=== PATIENT | female | born 1980 | race American Indian/Alaskan Native ===

== ENCOUNTER 2017-03-07 10:08 | Inpatient (IN) | payer MEDICAID, OTHER ==
[2017-03-07 12:16] LABS: BASO % 0.3 % (0.0-2.0); EOS % 0.3 % (0.0-4.0); HEMATOCRIT 31.9 % (34.0-47.0); LYMPH # 1.4 K/uL (1.0-4.3); LYMPH % 20.7 % (20.0-40.0); MEAN CELL VOLUME 85.7 fL (81.0-99.0); MEAN CORPUSCULAR HEMOGLOBIN 28.2 pg (27.0-31.0); MEAN CORPUSCULAR HGB CONC 32.9 g/dL (33.0-37.0); MEAN PLATELET VOLUME 10.5 fL (7.2-11.7); MONO # 0.7 K/uL (0.0-0.8); MONO % 10.5 % (0.0-10.0); RED CELL DISTRIBUTION WIDTH 15.2 % (11.5-14.5); WHITE BLOOD COUNT 6.7 K/uL (4.8-10.8)
[2017-03-07 12:19] LABS: CHLORIDE 103 mmol/L (98-107); RBC URINE < 1 /hpf (0-3); SODIUM 135 mmol/L (132-148); URINE BACTERIA OCC (<OCC); URINE BILIRUBIN NEGATIVE (NEGATIVE); URINE BLOOD NEGATIVE (NEGATIVE); URINE COLOR Straw (YELLOW); URINE GLUCOSE (UA) NORMAL (Normal); URINE KETONE NEGATIVE (NEGATIVE); URINE LEUKOCYTE ESTERASE 3+ Leu/uL (Negative); URINE PROTEIN NEGATIVE (NEGATIVE); URINE UROBILINOGEN NORMAL mg/dL (0.2-1.0); WBC URINE 23 /hpf (0-5)
[2017-03-07 12:20] LABS: POTASSIUM 3.8 mmol/L (3.6-5.2)
[2017-03-07 12:21] LABS: GFR AFRICAN-AMERICAN > 60
[2017-03-07 12:22] LABS: ALKALINE PHOSPHATASE 134 U/L (38-126); ALT/SGPT 8 U/L (9-52); AST/SGOT 19 U/L (14-36); BILIRUBIN,TOTAL 0.5 mg/dL (0.2-1.3); BLOOD UREA NITROGEN 6 mg/dL (7-17); CALCIUM 8.6 mg/dl (8.6-10.4); CARBON DIOXIDE 23 mmol/L (22-30); GLUCOSE,RANDOM 79 mg/dL (65-105); TOTAL PROTEIN 6.4 g/dL (6.3-8.3); URIC ACID 2.5 mg/dL (2.2-7.5)
--- NOTE | 2017-03-07 13:14 | US ---
PROCEDURE: 03/01/2017. HISTORY: abdominal pain; no care COMPARISON: None TECHNIQUE: Standard protocol for this study/examination. FINDINGS: FINDINGS: Biophysical profile score 8/8 Based on the followin. breathing movements: 2/2 2. Gross body movement: 2/2 3. tone: 2/2 4. Qualitative amniotic fluid index: 2/2 Vertex presentation. Anterior Placenta. No evidence of abruption or previa Gestational age derived from LMP 40 weeks 6 days Gestational age derived from the following biometric parameters 40 weeks 4 days . Biparietal diameter 9.9 cm Head bifpywckzcoos70.95 cm Abdominal circumference 35.9 cm Femur length 8.1 cm Estimated weight 4056 g Calculated cardiac rate 154 beats per min. Closed cervix measuring cm Limited anatomic survey. No gross abnormalities detected. IMPRESSION: Biophysical score 8/8. TARA based on LMP: 03/01/2017 TARA based on biometry: 03/01/2017.
--- NOTE | 2017-03-07 13:57 | OBHP ---
Datetime: 03/07/2017 13:31 IP Adm Impression: Postterm, intrauterine IP Adm Impression Other: no care IP Admit Plan: Admit to unit Admit Comment, IP Provider: patient evalauted at 11.30 am chief complaint-contractions, headache HPI 36 y/o GP1 at 40.6 wga by stated lmp , with c/o headcahe yetserday and abdominal nighat n since yesterday.Headache resolved now.Denies vision changes, chest pain, shortness of breath, numb ness or tingling in hands and feet Patient denieds having any ultrasound with this .No care.Went to er at [facility] twice for pelvic pin but did not have an ultrasound.went there in december 2016 and then january 2017. she was advised to get a support belt as per patient but she did not get that.She came to [facility] 1 year ago and due to no insurance did not see a doctor. course no care PMH back pain PSH denies OBGYN HX ; HX OF NVD 4.6 KG in [place]; patient states that she had lot of pain pushing the ba by.Denies any trauma to infant.denies any difficulty in delivering the .states that she started having lower back pain after the delivery and has difficulty in bending due to that.Infant after dle placido needed supplemental oxygen.denies hx o stds.Never had a pap smear Social hx denies tobacco,alcohol or illicit drug use Exam see exam section A/P 36 y/o at 40.6 wga , no care in early labor. -admit - labs, PIH albs -ultrasound stat Pelvic Type - PN: Adequate Extremities - PN: Normal Abdomen - PN: Normal Back - PN: Normal Lungs - PN: Normal Heart - PN: Normal Neurologic - PN: Normal General - PN: Normal Contraction Comments Provider: irregular IP Hx Assessment: No Care EGA AdmitDate IP: 40.6 Vital Signs Provider: Reviewed; Within Normal Limits IP Chief Complaint: Uterine contractions FHR Category Provider Fetus A: Category I Dilatation, Provider: 3 Effacement, Provider: 50 Station, Provider: -3 Genitourinary Exam: Normal DTRs - PN: Normal
[2017-03-07] MEDS ORDERED: cefOXitin IV 2 gm in Dextrose 2 GM/50 ML BAG IVPB ONE ×2 (14:02→14:50)
[2017-03-07] MEDS ORDERED: Sodium Citrate/Citric Acid 15 ml Sol PO ONE (14:02)
--- NOTE | 2017-03-07 14:23 | OBADHP ---
Datetime: 03/07/2017 13:31 IP Adm Impression Other: no care Admit Comment, IP Provider: patient evalauted at 11.30 am chief complaint-contractions, headache HPI 36 y/o GP1 at 40.6 wga by stated lmp , with c/o headcahe yetserday and abdominal nighat n since yesterday.Headache resolved now.Denies vision changes, chest pain, shortness of breath, numb ness or tingling in hands and feet Patient denieds having any ultrasound with this .No care.Went to er at [facility] twice for pelvic pin but did not have an ultrasound.went there in december 2016 and then january 2017. she was advised to get a support belt as per patient but she did not get that.She came to [facility] 1 year ago and due to no insurance did not see a doctor. course no care PMH back pain PSH denies OBGYN HX ; HX OF NVD 4.6 KG in [place]; patient states that she had lot of pain pushing the ba by.Denies any trauma to infant.denies any difficulty in delivering the infant.states that she started having lower back pain after the delivery and has difficulty in bending due to that.Infant after dle placido needed supplemental oxygen.denies hx o stds.Never had a pap smear Social hx denies tobacco,alcohol or illicit drug use Exam see exam section A/P 36 y/o at 40.6 wga , no care in early labor. -admit - labs, PIH albs -ultrasound stat 1.20 pm patient returned from ultrasound efw 4056 grams.Vertex.BPP 05/23 Patient re-exmained.now 3-4 cm dilated A/P 36 y/o at 40.6 wga in labor. discussed with patient about labor.Discussed ultrasound findings with patient.Patient concerned ab out the weight and requesting csection.Patient states that she had extereme difficulty pushing the baby out last time and hence wants to have a csection.Patient counselled extensively on risks and benefits of csection versus vaginal delivery.Discussed the risk of csection including but not limite d to bleeding, infection, injury to adjacent organs-bladder, bowel, ureter, risk of reoperation, risk of prolonged hospitalisation, risk of chronic pain, prolonged recovery etc.Discussed risk of vaginal deoivery-bleeding, risk of shoulder dystocia, risk of hemorrhage, risk of 4th degree laceration etc discussed.Discussed early recovery with vaginal delivery versus csection if no other comorbidties occ urr.Patient voices understanding all the risks and desires to proceed with a csection.Patient was giv en time to ask questions and discuss any concerns.All questions were answered to patient satisfaction and all concerns were addressed.Informed consent obtained.Anesthesia called Pelvic Type - PN: Adequate Extremities - PN: Normal Abdomen - PN: Normal Back - PN: Normal Lungs - PN: Normal Heart - PN: Normal Neurologic - PN: Normal General - PN: Normal Weight - Estimated: 4056 Presentation-Admit: Vertex Contraction Comments Provider: irregular Comments, ACOG Physical Exam: Vulva no lesions vagina physiological dischrage cervix 3/50/-3 uterus gravid adnexa no adnexal tenderness Gestation - Est Wks by US: 40.4 IP Hx Assessment: No Care Vital Signs Provider: Reviewed; Within Normal Limits IP Chief Complaint: Uterine contractions FHR Category Provider Fetus A: Category I Dilatation, Provider: 3 Effacement, Provider: 50 Station, Provider: -3 Genitourinary Exam: Normal DTRs - PN: Normal EGA AdmitDate IP: 40.6 IP Adm Impression: Postterm, intrauterine IP Admit Plan: Admit to unit
[2017-03-07] MEDS ORDERED: Sodium Citrate/Citric Acid 15 ml Sol ONE (14:48)
[2017-03-07] MEDS ORDERED: Morphine 1 mg/ml preservative-free Inj(Duramorph) ONE (14:48)
[2017-03-07] MEDS ORDERED: Oxytocin 20 units in LR 2,000 ML IV ONE (14:58)
[2017-03-07] MEDS ORDERED: Oxycodone/Acetaminophen 5/325 mg Tab PO PRN (15:13)
[2017-03-07] MEDS ORDERED: cefOXitin IV 2 gm in Dextrose 2 GM/50 ML BAG IVPB SCH (15:15)
[2017-03-07] MEDS ORDERED: ePHEDrine 50 mg/ml Inj ONE ×2 (16:08→16:22)
[2017-03-07] MEDS ORDERED: Phenylephrine 10 mg/ml Inj ONE (16:08)
[2017-03-07] MEDS ORDERED: Lidocaine 2% MPF (5 ml) Inj ONE (16:13)
[2017-03-07] MEDS ORDERED: DiphenhydrAMINE 50 mg/ml Inj IVP PRN (16:37)
[2017-03-07] MEDS: cefOXitin IV 2 gm in Dextrose 2 GM/50 ML BAG IVPB SCH (21:41)
[2017-03-08] MEDS: cefOXitin IV 2 gm in Dextrose 2 GM/50 ML BAG IVPB SCH ×2 (05:12→13:14)
[2017-03-08 08:01] LABS: BASO % 0.2 % (0.0-2.0); HEMATOCRIT 27.3 % (34.0-47.0); LYMPH % 10.9 % (20.0-40.0); MEAN CELL VOLUME 86.1 fL (81.0-99.0); MEAN CORPUSCULAR HGB CONC 32.6 g/dL (33.0-37.0); MEAN PLATELET VOLUME 10.3 fL (7.2-11.7); MONO # 0.6 K/uL (0.0-0.8); MONO % 6.2 % (0.0-10.0); RED CELL DISTRIBUTION WIDTH 15.3 % (11.5-14.5); WHITE BLOOD COUNT 9.3 K/uL (4.8-10.8)
[2017-03-08] MEDS: Oxycodone/Acetaminophen 5/325 mg Tab PO PRN ×3 (09:25→23:14)
[2017-03-08] MEDS: Prenatal Multivit/Folic Acid/Iron Tab PO SCH (09:26)
[2017-03-08] MEDS: Simethicone 80 mg Chewtab PO SCH ×4 (09:26→23:00)
[2017-03-08] MEDS: Enoxaparin 40 mg Syringe SC SCH (09:31)
--- NOTE | 2017-03-08 11:17 | OBPPN ---
Datetime: 03/08/2017 10:58 PP Pain Prov: Within normal limits PP Nausea Prov: Denies PP Flatus Prov: No PP BM Prov: No PP Breasts Prov: Normal PP Heart Prov: Normal PP Lungs Prov: Normal PP Abdomen/Uterus Prov: Normal PP Lochia Prov: Normal PP Vulva/Perineum Prov: Not Done PP CVA Tenderness Prov: Normal PP Extremities Prov: Normal PP C/S Incision Prov: Normal PP Progress Prov: Normal PP Comments Phys Exam Prov: Skin: warm, dry, intact Abdomen: Hypoactive BS. Softly distended. Obese. Dressing clean and dry. Fundus firm, mildly and a ppropriately tender, 2 FB below umbile, mobile. Moderate lochia rubra. Extremities: no calf tenderness All other systemsreviewed and are negative PP Impression Prov: Normal progression PP Plan Prov: Continue present management PP Progress Note Prov: Patient was seen and evaluated approximaterly 0830 hours; received in room 45 9; S/P sitting up in chair. Denies N/V. Has voided witout difficulty. C/O incisional/ mid abdominal p ain - pain scale 6/10. Denies dizzininess, lightheadedness, palpitations, chest pain , shortness of b reath. , mostly; some bottle P.E.: as above. Obese, in pain with movement. Awake, alert, oriented to time, person and place. Pl easant and cooperative. - POD#1 H/H 8.9/27.3, Rh(+) Assessment: POD#1 36 yo P1, S/P primary C/S at 40w 5d for presumed LGA with H/O macrosomia. No P[facility] in the [facility]. Afebrile, vital signs stable. Anemia - noted; pre-existing. Patient is asymptomat ic and hemodynamically stable. Patient in stable condition. Plan: 1) Encourage ambulation 2) Encourage continue incentive spirometer 3) Start iron BID 4) continue present management Vital Signs Provider PP: Reviewed
[2017-03-09] MEDS: Oxycodone/Acetaminophen 5/325 mg Tab PO PRN ×2 (08:03→13:48)
--- NOTE | 2017-03-09 08:08 | OBPPN ---
Datetime: 03/09/2017 08:05 PP Pain Prov: Within normal limits PP Nausea Prov: Denies PP Flatus Prov: Yes PP BM Prov: No PP Heart Prov: Normal PP Lungs Prov: Normal PP Abdomen/Uterus Prov: Normal PP Lochia Prov: Normal PP CVA Tenderness Prov: Normal PP Extremities Prov: Normal PP C/S Incision Prov: Normal PP Progress Prov: Normal PP Impression Prov: Normal progression PP Plan Prov: Continue present management PP Progress Note Prov: S-patient denies any complaints.Pain well controlled.Denies nausea, vomiting, headache. chest pain, shortness of breath, numbness or tingling in hands and feet O-VSS Afebrile Fundus firm and below umbilcius Extremities no calf tenderness Incision clean, dry and intact A/P Patient s/p csection pod 2 doing well -continue rourtine post op care -social human services assistants consult -anticipate discharge tomorrow Vital Signs Provider PP: Reviewed; Within Normal Limits
[2017-03-09] MEDS: Simethicone 80 mg Chewtab PO SCH ×4 (09:52→21:35)
[2017-03-09] MEDS: Prenatal Multivit/Folic Acid/Iron Tab PO SCH (09:52)
[2017-03-09] MEDS: Enoxaparin 40 mg Syringe SC SCH (09:53)
--- NOTE | 2017-03-09 17:37 | OBDS ---
DELIVERY PERSONNEL Delivery Doctor: Ramírez Clay MD Scrub Nurse: Maria M Huber R Wire Inserter: Liberty Medina RN Anesthesiologist: MD Melissa MATERNAL INFORMATION Delivery Anesthesia: Epidural; Spinal Estimated Blood Loss (ml): 800 Placenta Cultured: Yes Maternal Complications: Other Other Maternal Complications: Back trauma from previous delivery; LGA Provider Comments: primary csecction done for LGAon maternal request EBL 800cc apgars 9/9 at 1 and 55min of life LABOR SUMMARY EDC: 03/01/2017 00:00 No. Babies in Womb: 1 Attempted: No Labor Anesthesia: None STAGES OF LABOR Stage 3 hrs: 0 Stage 3 min: 1 CSECTION DELIVERY Primary Indication: Other Other Primary Indication: large for gestational age CSection Urgency: Non Elective CSection Incidence: Primary Labor: Labor Elective: Nonelective CSection Incision: Lower Uterine Transverse BABY A INFORMATION Infant Delivery Date/Time: 03/07/2017 15:47 Method of Delivery: Born in Route : No : N/A Forceps: N/A Vacuum Extraction: N/A Shoulder Dystocia : No SHOULDER DYSTOCIA BABY A Infant Delivery Date/Time: 03/07/2017 15:47 PRESENTATION/POSITION BABY A Presentation: Cephalic Cephalic Presentation: Vertex Vertex Position: Right Occipital Transverse Breech Presentation: N/A PLACENTA INFORMATION BABY A Placenta Delivery Time : 03/07/2017 15:48 Placenta Method of Delivery: Manual Removal Placenta Status: Delivered SCORES BABY A Heart Rate 1 min: >100 bpm Resp Effort 1 min: Good Cry Reflex Irritability 1 min: Cough or Sneeze or Pulls Away Muscle Tone 1 min: Active Motion Color 1 min: Body [place], Extremities Blue Resuscitation Effort 1 min: Tactile Stimulation SCORE 1 MIN: 9 Heart Rate 5 min: >100 bpm Resp Effort 5 min: Good Cry Reflex Irritability 5 min: Cough or Sneeze or Pulls Away Muscle Tone 5 min: Active Motion Color 5 min: Body [place], Extremities Blue Resuscitation Effort 5 min: N/A SCORE 5 MIN: 9 INFORMATION BABY A Gestational Age at Delivery: 40.6 Gestational Status: Term Infant Outcome : Liveborn Condition : Stable Infant Sex: Female IDENTIFICATION/MEDS BABY A ID Band Number: [id number] ID Band Location: Left Leg; Left Arm Sensor Applied: Yes Sensor Number: [id number] Sensor Location : Cord Clamp WEIGHT/LENGTH BABY A Infant Birthweight (gms): 4285 Infant Weight (lb): 9 Weight (oz): 7 Length Inches: 20.50 Length cms: 52.1 CORD INFORMATION BABY A No. Cord Vessels: 3 Nuchal Cord : N/A Infant Cord pH Baby Arterial: 7.30 Cord pH Baby Venous: 7.30 Cord Blood Taken: N/A Suction: Mouth; Nose
--- NOTE | 2017-03-10 01:02 | OP ---
PROCEDURE DATE: 03/07/2017 PREOPERATIVE DIAGNOSES: 1. Large for gestational age . 2. Post-term . 3. No care. POSTOPERATIVE DIAGNOSES: 1. Large for gestational age . 2. Post-term . 3. No care. PROCEDURE PERFORMED: Primary low transverse section on maternal request. SURGEON: Wayne Clay MD. DIE REAMER: Dr. Romero. Please note that the procedure required a surgical assistant certified to assist with entry into the abdominal cavity, to assist with the exposure of the tissues and also to assist with the delivery of the and the closure of the abdominal wall. The surgical garment assembly supervisor was present and scrubbed for the entire duration of the procedure. ANESTHESIA: Spinal. ANESTHESIOLOGIST: Dr. Remberto Torres. COMPLICATIONS: None. ESTIMATED BLOOD LOSS: 800 mL. FINDINGS: A female in vertex presentation with Apgars of 9 at one minute and 9 at 5 minutes, normal uterus, tubes, and ovaries bilaterally. SPECIMEN: Placenta and cord blood. PROCEDURE IN DETAIL: The patient is a 36-year-old female who presented at 40 weeks and 6 days gestational age by her last menstrual period with no care to labor and delivery. The patient was found to be in early labor. An ultrasound was performed, which showed the estimated weight of 4056 grams. The patient reported a previous vaginal delivery of a 4600 gram infant in [facility], which was traumatic delivery. Patient requested a primary . The patient was counseled extensively on the risks and benefits of vaginal delivery versus . After discussing all the risks and benefits in detail including answering all the patient's questions, the patient desired to proceed with a primary repeat section. The patient was given enough time to ask any questions and informed consent was obtained. The patient was thereafter taken to the operating room where combined spinal epidural was placed by the anesthesia team. The patient was thereafter placed in dorsal supine position with a leftward tilt. A Wagoner catheter was found to be draining clear urine. She was then prepped and draped in the usual sterile manner. A Pfannenstiel skin incision was then made with the scalpel and carried down to the underlying layer of the fascia with the help of the Bovie. The fascia was then incised in the midline and the incision extended laterally with the help of the Bovie. The superior aspect of the fascial incision was then grasped with Chuck clamps, elevated, and the underlying rectus muscles dissected off. Attention was then turned to the inferior aspect of the fascial incision, which in a similar fashion was grasped with Chuck clamps, elevated, and the underlying rectus muscle was dissected off. The rectus muscle was in the midline and the peritoneum was entered bluntly. The peritoneal incision extended superiorly and inferiorly with good visualization of the bladder. The bladder blade was then inserted and the vesicouterine peritoneum identified. A transverse incision was made over the vesicouterine peritoneum with the help of Metzenbaum scissors and this incision was extended laterally sharply and the bladder flap was created. The bladder blade was then reinserted and the lower uterine segment identified. A transverse incision was made over the lower uterine segment with the help of a fresh scalpel. This incision extended laterally with the help of bandage scissors. The membranes were then ruptured and the 's head was delivered atraumatically. The body and the shoulders were delivered without any difficulty and the cord was then clamped and cut and the was handed over to the waiting pediatricians. The uterus was then exteriorized and cleared of all clots and debris. Cord bloods were collected after a segment of cord had been taken for cord blood pH. The placenta was then manually removed and the uterus was exteriorized and cleared of all clots and debris. The uterine incision was repaired with 0 Polysorb in a running-locked fashion. A second layer of same suture was used to imbricate the first layer and also to obtain hemostasis. Adequate hemostasis was noted from the uterine incision repair site. The pelvis was copiously irrigated and suctioned. The uterus was returned to the patient's abdomen. Bleeding was noted from the midsection of the uterus and this was suture ligated using 0 Monocryl. Adequate hemostasis was noted from the uterine incision repair site. The bladder flap was inspected for hemostasis and adequate hemostasis was noted from it. The peritoneum was then closed with 2-0 Polysorb in a running fashion. The muscle layer was reapproximated with 2-0 Polysorb in a running fashion. The fascia was closed with 0 Vicryl in a running fashion. The subcutaneous tissue was reapproximated with 2-0 Polysorb in a continuous manner. The skin was then closed with citlaly. The sponge, needle, and instrument count was correct x 3 as reported to me. The patient tolerated the procedure well. The placenta was sent off to pathology. Wayne Clay MD cc: [id number] TT: 03/10/2017 01:01:59 mn MTDVanessa
--- NOTE | 2017-03-10 08:21 | OBPPN ---
Datetime: 03/10/2017 08:19 PP Pain Prov: Within normal limits PP Pain Prov comment: weell controlled PP Nausea Prov: Denies PP Flatus Prov: Yes PP Abdomen/Uterus Prov: Normal PP Lochia Prov: Normal PP Extremities Prov: Normal PP C/S Incision Prov: Normal PP Comments Phys Exam Prov: fudus below umblicus ext no edema,no calf ten incision clean and dry PP Impression Prov: Normal progression PP Plan Prov: Discharge PP Progress Note Prov: pt was seen at bed side, pain under control,no n/v, tolerating deit,voiding,m in lochias,flatus + pod#3 s/p c/s dc home no sex motrin prn f/u in clinic monday Vital Signs Provider PP: Reviewed; Within Normal Limits
--- NOTE | 2017-03-10 08:22 | OBDCSUM ---
Datetime: 03/10/2017 07:49 Discharged to, Provider: Home Follow up at, Provider: clinic Disch Instr Activity: Normal activity Disch Instr Diet: Regular Discharge Diagnosis, Provider: Term Delivered Follow up in weeks, Provider: monday [facility] Disch Referrals: None Disch Activity Restrictions: No exercising; No lifting; No driving; Minimize stair-climbing; No sexu al activity; Nothing in vagina - [place], tampons, douche Discharge Comment, Provider: no sex motrin/percocet oprn f/u in clinic on monday Discharge Diagnosis Prov Other: c/s
--- NOTE | 2017-03-10 08:24 | CP.PCM.DIS ---
Provider - Provider Date of Admission: 03/07/17 14:01 Attending physician: Wayne Clay MD Time Spent in preparation of Discharge (in minutes): 40 Hospital Course - Lab Results Lab Results: Most Recent Lab Values WBC 9.3 K/uL (4.8-10.8) 03/08/17 07:49 RBC 3.17 Mil/uL (3.80-5.20) L 03/08/17 07:49 Hgb 8.9 g/dL (11.0-16.0) L 03/08/17 07:49 Hct 27.3 % (34.0-47.0) L 03/08/17 07:49 MCV 86.1 fL (81.0-99.0) 03/08/17 07:49 MCH 28.0 pg (27.0-31.0) 03/08/17 07:49 MCHC 32.6 g/dL (33.0-37.0) L 03/08/17 07:49 RDW 15.3 % (11.5-14.5) H 03/08/17 07:49 Plt Count 230 K/uL (130-400) 03/08/17 07:49 MPV 10.3 fL (7.2-11.7) 03/08/17 07:49 Neut % (Auto) 82.7 % (50.0-75.0) H 03/08/17 07:49 Lymph % (Auto) 10.9 % (20.0-40.0) L 03/08/17 07:49 [place] % (Auto) 6.2 % (0.0-10.0) 03/08/17 07:49 Eos % (Auto) 0.0 % (0.0-4.0) 03/08/17 07:49 Baso % (Auto) 0.2 % (0.0-2.0) 03/08/17 07:49 Neut # 7.7 K/uL (1.8-7.0) H 03/08/17 07:49 Lymph # 1.0 K/uL (1.0-4.3) 03/08/17 07:49 [place] # 0.6 K/uL (0.0-0.8) 03/08/17 07:49 Eos # 0.0 K/uL (0.0-0.7) 03/08/17 07:49 Baso # 0.0 K/uL (0.0-0.2) 03/08/17 07:49 PT 10.8 SECONDS (9.7-12.2) 03/07/17 11:57 INR 1.0 03/07/17 11:57 APTT 25 SECONDS (21-34) 03/07/17 11:57 Fibrinogen 664 mg/dL (200-400) H 03/07/17 11:57 Sodium 135 mmol/L (132-148) 03/07/17 11:57 Potassium 3.8 mmol/L (3.6-5.2) 03/07/17 11:57 Chloride 103 mmol/L (98-107) 03/07/17 11:57 Carbon Dioxide 23 mmol/L (22-30) 03/07/17 11:57 Anion Gap 13 (10-20) 03/07/17 11:57 BUN 6 mg/dL (7-17) L 03/07/17 11:57 Creatinine 0.6 MG/DL (0.7-1.2) L 03/07/17 11:57 Est GFR ( Amer) > 60 03/07/17 11:57 Est GFR (Non-Af Amer) > 60 03/07/17 11:57 Random Glucose 79 mg/dL (65-105) 03/07/17 11:57 Uric Acid 2.5 mg/dL (2.2-7.5) 03/07/17 11:57 Calcium 8.6 mg/dl (8.6-10.4) 03/07/17 11:57 Total Bilirubin 0.5 mg/dL (0.2-1.3) 03/07/17 11:57 AST 19 U/L (14-36) 03/07/17 11:57 ALT 8 U/L (9-52) L 03/07/17 11:57 Alkaline Phosphatase 134 U/L (38-126) H 03/07/17 11:57 Lactate Dehydrogenase 333 U/L (313-618) 03/07/17 11:57 Total Protein 6.4 g/dL (6.3-8.3) 03/07/17 11:57 Albumin 3.1 g/dL (3.5-5.0) L 03/07/17 11:57 Globulin 3.3 gm/dL (2.2-3.9) 03/07/17 11:57 Albumin/Globulin Ratio 1.0 (1.0-2.1) 03/07/17 11:57 Urine Color Straw (YELLOW) 03/07/17 11:57 Urine Clarity Clear (Clear) 03/07/17 11:57 Urine pH 7.0 (5.0-8.0) 03/07/17 11:57 Ur Specific [place] 1.006 (1.003-1.030) 03/07/17 11:57 Urine Protein Negative mg/dL (NEGATIVE) 03/07/17 11:57 Urine Glucose (UA) Normal mg/dL (Normal) 03/07/17 11:57 Urine Ketones Negative mg/dL (NEGATIVE) 03/07/17 11:57 Urine Blood Negative (NEGATIVE) 03/07/17 11:57 Urine Nitrate Negative (NEGATIVE) 03/07/17 11:57 Urine Bilirubin Negative (NEGATIVE) 03/07/17 11:57 Urine Urobilinogen Normal mg/dL (0.2-1.0) 03/07/17 11:57 Ur Leukocyte Esterase 3+ Dany/uL (Negative) H 03/07/17 11:57 Urine WBC (Auto) 23 /hpf (0-5) H 03/07/17 11:57 Urine RBC (Auto) < 1 /hpf (0-3) 03/07/17 11:57 Ur Squamous Epith Cells 1 /hpf (0-5) 03/07/17 11:57 Urine Bacteria Occ (<OCC) H 03/07/17 11:57 Urine Opiates Screen Negative (NEGATIVE) 03/07/17 11:57 Urine Methadone Screen Negative (NEGATIVE) 03/07/17 11:57 Ur Barbiturates Screen Negative (NEGATIVE) 03/07/17 11:57 Ur Phencyclidine Scrn Negative (NEGATIVE) 03/07/17 11:57 Ur Amphetamines Screen Negative (NEGATIVE) 03/07/17 11:57 U Benzodiazepines Scrn Negative (NEGATIVE) 03/07/17 11:57 U Oth Cocaine Metabols Negative (NEGATIVE) 03/07/17 11:57 U Cannabinoids Screen Negative (NEGATIVE) 03/07/17 11:57 RPR Nonreactive (NONREACTIVE) 03/07/17 11:57 Hep Bs Antigen Negative (NEGATIVE) 03/07/17 11:57 Hep Bs Antibody Negative (NEGATIVE) 03/07/17 11:57 Hepatitis C Antibody Negative (NEGATIVE) 03/07/17 11:57 HIV 1&2 Antibody Screen Negative (NEGATIVE) 03/07/17 11:57 Rubella IgG Antibody Positive (POSITIVE) 03/07/17 11:35 Blood Type A POSITIVE 03/07/17 11:57 Antibody Screen Negative 03/07/17 11:57 - Hospital Course Hospital Course: 36F s/p POD#3. Uncomplicated operation. Routine post Op care was given, Patient's pain is now controlled, she is both breast and bottle feeding. No further complaints. Discharge Exam - Head Exam Head Exam: ATRAUMATIC - Eye Exam Eye Exam: EOMI, PERRL - ENT Exam ENT Exam: Mucous Membranes Moist - Respiratory Exam Respiratory Exam: Clear to PA & Lateral, NORMAL BREATHING PATTERN - Cardiovascular Exam Cardiovascular Exam: REGULAR RHYTHM, +S1, +S2 - GI/Abdominal Exam GI & Abdominal Exam: Soft. absent: Distended, Firm, Guarding, Rebound, Rigid, Tenderness Additional comments: Uterus 2 finger breadth below umbilicus. Incision clean dry intact - Neurological Exam Neurological exam: Alert, Oriented x3 - Psychiatric Exam Psychiatric exam: Normal Affect, Normal Mood - Skin Skin Exam: Dry, Intact, Normal Color, Warm Discharge Plan - Discharge Medications Prescriptions: Ibuprofen [Motrin Tab] 800 mg PO Q8 PRN #30 tab PRN Reason: Pain, Moderate (4-7) - Follow Up Plan Condition: GOOD Disposition: HOME/ ROUTINE Patient education suggested?: Yes Instructions: Section (DC), Ibuprofen (By mouth), Oxycodone/ Acetaminophen (By mouth) Additional Instructions: Please follow up in the clinic upon discharge March 15, Monday. We encourage walking and light activity at home. Can shower and wash with soap and water. - Pat dry the incision. Please take prescriptions as directed. No sexual intercourse for 6 weeks. Referrals: [facility] [Outside]
[2017-03-10 08:37] VITALS: BP 108/68; PULSE 95; RESP 18; TEMP 98.9; O2SAT 98
[2017-03-10] MEDS: Prenatal Multivit/Folic Acid/Iron Tab PO SCH (09:55)
[2017-03-10] MEDS: Enoxaparin 40 mg Syringe SC SCH (09:56)
[2017-03-10] MEDS: Simethicone 80 mg Chewtab PO SCH (09:56)
== END 2017-03-10 11:50 | disposition home or self-care (01) | DRG 370 ==
LOC: C.EROB 10:08 → C.4D 14:01 → C.4M 19:50
PROVIDERS: ADMIT Student in an Organized Health Care Education/Training Program; ATTEND Student in an Organized Health Care Education/Training Program
PROC: 10D00Z1 Extraction of Products of Conception, Low, Open Approach (ICD-10-PCS; principal; 2017-03-07)
DX: O48.0 Post-term pregnancy (principal); O99.02 Anemia complicating childbirth; E66.9 Obesity, unspecified; O99.214 Obesity complicating childbirth; D64.9 Anemia, unspecified; O36.63X0 Maternal care for excessive fetal growth, third trimester, not applicable or unspecified; O34.219 Maternal care for unspecified type scar from previous cesarean delivery; Z68.34 Body mass index [BMI] 34.0-34.9, adult; Z37.0 Single live birth; Z3A.40 40 weeks gestation of pregnancy

== ENCOUNTER 2017-03-15 08:45 | Inpatient (IN) | payer MEDICAID, OTHER ==
--- NOTE | 2017-03-15 09:30 | RAD ---
PROCEDURE: CHEST RADIOGRAPH, 1 VIEW HISTORY: SOB COMPARISON: None available. FINDINGS: LUNGS: Moderate venous congestion with patchy bibasilar airspace opacities. PLEURA: No pneumothorax or pleural fluid seen. CARDIOVASCULAR: Cardiomegaly. OSSEOUS STRUCTURES: No significant abnormalities. VISUALIZED UPPER ABDOMEN: Normal. OTHER FINDINGS: None. IMPRESSION: Moderate venous congestion with patchy bibasilar airspace opacities.
[2017-03-15 09:51] LABS: BASO # 0.1 K/uL (0.0-0.2); BASO % 0.9 % (0.0-2.0); EOS # 0.1 K/uL (0.0-0.7); EOS % 1.4 % (0.0-4.0); HEMATOCRIT 26.1 % (34.0-47.0); LYMPH # 1.7 K/uL (1.0-4.3); LYMPH % 23.1 % (20.0-40.0); MEAN CELL VOLUME 86.4 fL (81.0-99.0); MEAN CORPUSCULAR HEMOGLOBIN 28.1 pg (27.0-31.0); MEAN CORPUSCULAR HGB CONC 32.5 g/dL (33.0-37.0); MEAN PLATELET VOLUME 8.2 fL (7.2-11.7); MONO # 0.4 K/uL (0.0-0.8); MONO % 5.9 % (0.0-10.0); NRBC % 0.2 % (0.0-2.0); RED CELL DISTRIBUTION WIDTH 15.8 % (11.5-14.5); WHITE BLOOD COUNT 7.4 K/uL (4.8-10.8)
[2017-03-15 10:00] LABS: CHLORIDE 108 mmol/L (98-107); SODIUM 139 mmol/L (132-148)
[2017-03-15 10:03] LABS: ALB/GLOB RATIO 0.9 (1.0-2.1); ALKALINE PHOSPHATASE 94 U/L (38-126); ALT/SGPT 25 U/L (9-52); AST/SGOT 24 U/L (14-36); BILIRUBIN,TOTAL 0.3 mg/dL (0.2-1.3); BLOOD UREA NITROGEN 5 mg/dL (7-17); CARBON DIOXIDE 23 mmol/L (22-30); GFR AFRICAN-AMERICAN > 60; GLUCOSE,RANDOM 83 mg/dL (65-105); TOTAL PROTEIN 6.2 g/dL (6.3-8.3)
[2017-03-15 10:04] LABS: CALCIUM 8.2 mg/dl (8.6-10.4)
--- NOTE | 2017-03-15 10:17 | C.PDOC ---
History Of Present Illness 36 y/o female with no significant PMHx presents to the ED with complaints of SOB x3 days, worse when laying flat. Pt also reports bilateral lower leg edema which she noticed when she got home from 03/07/17. Pt is , denies complications with her 1st . She also denies cough, fever, abdominal pain, chest pain, palpitations. Time Seen by Provider: 03/15/17 09:04 Chief Complaint (Nursing): Shortness Of Breath History Per: Patient History/Exam Limitations: no limitations Onset/Duration Of Symptoms: Days Current Symptoms Are (Timing): Still Present Exacerbating Factor(s): Laying Flat Severity: Moderate Associated Symptoms: Ankle/Leg Swelling. denies: Fever, Chest Pain, Bloody Cough, Productive Cough Reports Recently: Treated By A Physician Past Medical History Reviewed: Historical Data, Nursing Documentation, Vital Signs Vital Signs: Last Vital Signs Temp 98.9 F 03/17/17 08:10 Pulse 72 03/17/17 08:42 Resp 20 03/17/17 08:10 BP 129/86 03/17/17 09:23 Pulse Ox 98 03/17/17 08:10 - Medical History PMH: No Chronic Diseases - [facility] Procedures EXTRACTION OF POC, LOW CERVICAL, OPEN APPROACH (03/07/17) Family History: States: No Known Family Hx - Social History Hx Alcohol Use: No Hx Substance Use: No - Immunization History Hx Tetanus Toxoid Vaccination: No Hx Influenza Vaccination: No Hx Pneumococcal Vaccination: No Review Of Systems Except As Marked, All Systems Reviewed And Found Negative. Constitutional: Negative for: Fever, Chills Cardiovascular: Negative for: Chest Pain, Palpitations Respiratory: Positive for: Shortness of Breath, SOB with Excertion. Negative for: Cough Gastrointestinal: Negative for: Nausea, Vomiting, Abdominal Pain, Diarrhea Musculoskeletal: Positive for: Other (bilateral lower leg swelling) Physical Exam - Physical Exam Appears: Well, Non-toxic, No Acute Distress, Other (speaking in full sentences) Skin: Warm, Dry, No Rash Head: Normacephalic Oral Mucosa: Moist Neck: Normal, Normal ROM, Supple Cardiovascular: Rhythm Regular Respiratory: No Accessory Muscle Use, Rales (bases B/L), No Rhonchi, No Wheezing Gastrointestinal/Abdominal: Normal Exam, Bowel Sounds, Soft, No Tenderness, No Guarding, No Rebound Extremity: No Calf Tenderness, Swelling (+3 pitting edema bilateral lower extremities, +1 pitting edema bilateral upper extremities) Neurological/Psych: Oriented x3 ED Course And Treatment - Laboratory Results Result Diagrams: 03/17/17 07:08 03/17/17 07:08 ECG: Interpreted By Me, Viewed By Me (NSR 74 bpm, normal axis, no acute ST/T wave changes) ECG Interpretation: Normal Rate From EC (BPM) O2 Sat by Pulse Oximetry: 96 (room air) Pulse Ox Interpretation: Normal - Other Rad CXR X-Ray: Viewed By Me, Read By Radiologist Interpretation: Accession No. : [id number]. Patient Name / ID : CARISA ROBB / [id number]. Exam Date : 03/15/2017 09:12:08 ( Approved ). Study Comment : Sex / Age : F / 36Y. Creator : Gopal Burnham MD. Dictator : Gopal Burnhma MD. Manager Costing : Mixing Supervisor : Gopal Burnham MD. Approver2 : Report Date : 03/15/2017 09:28:35. My Comment : . PROCEDURE: CHEST RADIOGRAPH, 1 VIEW. HISTORY: SOB. COMPARISON: None available. FINDINGS: LUNGS: Moderate venous congestion with patchy bibasilar airspace opacities. PLEURA: No pneumothorax or pleural fluid seen. CARDIOVASCULAR: Cardiomegaly. OSSEOUS STRUCTURES: No significant abnormalities. VISUALIZED UPPER ABDOMEN: Normal. OTHER FINDINGS: None. IMPRESSION: Moderate venous congestion with patchy bibasilar airspace opacities. Progress Note: Plan: Blood work, EKG, CXR and cardiac echo ordered. Patient given IV lasix. 1:15pm- No echo done yet, will order CTA angio chest at this time. 2:15pm- Spoke with [facility], Dr. Waite is reading echos today. Litigation Coordinator asked to place call, pending call back. 3:10pm - Dr. Galindo recommends putting on consult for cardio consumer safety officer, Dr. Mary Villa, for official read/consult. Call placed to Dr. Villa office, pending call back. - Physician Consult Information Physician Contacted: Anthony Hancock Outcome Of Conversation: Discussed patient with hospitalist, he agrees with admission for CHF, r/o cardiomyopathy. Critical Care Time - Critical Care Note Total Time (in mins): 45 Documented critical care: time excludes all time spent performing seperately billable procedures. Disposition - Disposition Disposition: HOSPITALIZED Disposition Time: 15:38 Condition: STABLE - Clinical Impression Clinical Impression: CHF, acute, state, Elevated brain natriuretic peptide (BNP) level - Scribe Statement The provider has reviewed the documentation as recorded by the Hilda Lloyd Provider Attestation: All medical record entries made by the Shwetaibe were at my direction and personally dictated by me. I have reviewed the chart and agree that the record accurately reflects my personal performance of the history, physical exam, medical decision making, and the department course for this patient. I have also personally directed, reviewed, and agree with the discharge instructions and disposition. Decision To Admit - Pt Status Changed To: Hospital Disposition Of: Inpatient - Admit Certification Admit to Inpatient:: After my assessment, the patient will require hospitalization for at least two midnights. This is because of the severity of symptoms shown, intensity of services needed, and/or the medical risk in this patient being treated as an outpatient. - InPatient: Physician Admission Certification: I certify that this patient requires 2 or more midnights of care for the following reason:: SEE NOTES - . Bed Request Type: Telemetry Admitting Physician: Anthony Hancock Patient Diagnosis: CHF, acute, state, Elevated brain natriuretic peptide (BNP) level
[2017-03-15 11:54] LABS: URINE BILIRUBIN NEGATIVE (NEGATIVE); URINE BLOOD NEGATIVE (NEGATIVE); URINE COLOR Colorless (YELLOW); URINE GLUCOSE (UA) NORMAL (Normal); URINE KETONE NEGATIVE (NEGATIVE); URINE LEUKOCYTE ESTERASE NEG Leu/uL (Negative); URINE PROTEIN NEGATIVE (NEGATIVE); URINE UROBILINOGEN NORMAL mg/dL (0.2-1.0)
[2017-03-15] MEDS ORDERED: Iodixanol 320 MG/ML 100 ML BOTTLE IV ONE (14:23)
--- NOTE | 2017-03-15 15:27 | CT ---
CT chest with IV contrast Indication: Shortness of breath, Technique: Contiguous axial images were obtained through the chest with intravenous contrast enhancement. Sagittal and coronal reconstructions were generated and reviewed. This CT exam was performed using 1 or more of the falling dose reduction techniques: Automated exposure control, adjustment of the MAA and/or kV according to patient size, and/or use of iterative reconstruction technique. IV Contrast: 100 mL Visipaque Radiation dose (DLP): 570.25 MGy-cm. Comparison: Chest x-ray performed 03/15/17 Findings: Visualized portions of the inferior thyroid gland appear unremarkable. The mediastinal and hilar vascular structures appear within normal limits. The heart appears within normal limits of size. Cardiomegaly. No large central or segmental pulmonary embolus evident. Subtle bilateral ground-glass pulmonary opacities predominantly involving the lower lobes. Considerations include infectious, inflammatory etiologies or edema. Correlate clinically. No focal consolidation. No pleural effusion. No pneumothorax. 3 mm right upper lobe subpleural pulmonary nodule (series 3, image 39). 4 mm right lower lobe subpleural 3 mm left upper lobe pulmonary nodule (series 3, image 51). Pulmonary nodule (series 3, image 62). 3 mm subpleural left lower lobe pulmonary nodule (series 3, image 76). No acute osseous abnormality is detected. Impression: No large central or segmental pulmonary embolus identified. Subtle bilateral ground-glass pulmonary opacities predominantly involving the lower lobes. Considerations include infectious, inflammatory etiologies or edema. Correlate clinically. Cardiomegaly. At least 4 pulmonary nodules as above measuring up to 4 mm. In the absence of risk factors for lung cancer, no specific imaging follow-up is required. If the patient is a smoker or has other risk factors, follow-up CT at 12 months is recommended to document stability.
--- NOTE | 2017-03-15 16:31 | CP.PCM.HP ---
<Epifanio Justice - Last Filed: 03/15/17 17:11> History of Present Illness - History of Present Illness History of Present Illness: CC: SOB HPI: 36F and no other PMHx presented with SOB. Patient is s/p c/section on 03/07 with no complication before and after delivery. Patient started feeling SOB 3 days ago with associated orthopnea. Pt started to have difficulty breathing with movement. Pt also reports subjective fever yesterday and bilateral feet and face swelling started today. Pt said no complication with her first . Denied chest pain, additional fever episode, chills, abdominal pain, constipation, diarrhea. PMHx: none PSHx: csection FMHx: mother from cervical CA at 45 y/o Social: denied ETOH, smoking or drugs. lives with bf and her second child Present on Admission - Present on Admission Any Indicators Present on Admission: No Review of Systems - Constitutional Constitutional: Fever. absent: Chills - EENT Eyes: absent: Change in Vision - Cardiovascular Cardiovascular: Dyspnea, Edema, Leg Edema, Orthopnea. absent: Chest Pain, Irregular Heart Rhythm - Respiratory Respiratory: Dyspnea. absent: Cough, Hemoptysis, Wheezing - Gastrointestinal Gastrointestinal: absent: Abdominal Pain, Constipation, Nausea, Vomiting Past Patient History - Past Social History Smoking Status: Never Smoked - PSYCHIATRIC Hx Substance Use: No - SURGICAL HISTORY Hx Surgeries: Yes Hx Section: Yes - ANESTHESIA Hx Anesthesia: Yes Hx Anesthesia Reactions: No Meds Allergies/Adverse Reactions: Allergies Allergy/AdvReac Type Severity Reaction Status Date / Time No Known Allergies Allergy Verified 03/07/17 11:23 Physical Exam - Constitutional Appears: Non-toxic, No Acute Distress Additional comments: obese - Head Exam Head Exam: NORMAL INSPECTION, NORMOCEPHALIC - Eye Exam Eye Exam: Normal appearance Pupil Exam: NORMAL ACCOMODATION - Respiratory Exam Respiratory Exam: Clear to Auscultation Bilateral, NORMAL BREATHING PATTERN. absent: Rhonchi, Wheezes - Cardiovascular Exam Cardiovascular Exam: REGULAR RHYTHM, JVD, +S1, +S2. absent: Gallop, Rubs - GI/Abdominal Exam GI & Abdominal Exam: Normal Bowel Sounds, Soft. absent: Tenderness - Extremities Exam Extremities exam: Positive for: pedal edema (2+) - Neurological Exam Neurological exam: Alert, Oriented x3 - Psychiatric Exam Psychiatric exam: Normal Affect, Normal Mood - Skin Skin Exam: Dry, Intact Results - Vital Signs Recent Vital Signs: Last Vital Signs Temp 99.6 F 03/15/17 08:55 Pulse 68 03/15/17 13:55 Resp 34 H 03/15/17 13:55 BP 144/90 03/15/17 13:55 Pulse Ox 96 03/15/17 15:47 - Labs Result Diagrams: 03/15/17 09:46 03/15/17 09:46 Assessment & Plan - Assessment and Plan (Free Text) Assessment: Swelling Secondary to cardiomyopathy vs other etiologies. Cardio Dr. Villa consulted, help appreciated. CT with contrast showed cardiomegaly, 4 pulmonary nodules x4, ground glass opacities in lower lobes per report. DOUGIE negative x1. BNP 642. Lasix 60mg IV q12H. Will switch to HCTZ discharge due to safety. Lopressor 25mg PO q12H. Will hold ACEI or ARB for now due to . F/U DOUGIE x2. F/U EKG AM. F/U ECHO. F/U TSH, A1c, FT4, lipid panel. HTN New onset. See above for management. Anemia Continue monitoring. S/P C/Section on 03/07. OB Dr. Clay consulted, help appreciated. Prophylactic measure HepSQ, Protonix, SCD contraindiated. F/U venous doppler. <Remberto Orozco - Last Filed: 04/20/17 12:36> Results - Vital Signs Recent Vital Signs: Last Vital Signs Temp 98.9 F 03/17/17 08:10 Pulse 72 03/17/17 08:42 Resp 20 03/17/17 08:10 BP 129/86 03/17/17 09:23 Pulse Ox 96 03/22/17 04:39 - Labs Result Diagrams: 03/17/17 07:08 03/17/17 07:08 Attending/Attestation - Attestation I have personally seen and examined this patient.: Yes I have fully participated in the care of the patient.: Yes I have reviewed all pertinent clinical information: Yes Notes (Text): Patient Seen and examined with the resident. Agree with the resident's evaluation, assessment and plan. Swelling AND shortness of breath Secondary to cardiomyopathy HTN new onset Anemia S/P C/Section on 03/07. OB Dr. Clay consulted, help appreciated.
--- NOTE | 2017-03-15 20:08 | CP.PCM.CON ---
History of Present Illness - History of Present Illness History of Present Illness: 36 yr s/p c/s 03/07/17 came came to er c/o sob and increased swelling in the feet.c/o hempotsis x 2 yesterday.pain under control,no n/v, tolerating diet, min lochia.no other concern. pt had a c/s for no prenastal care and r/o macrosomic baby. uncomplicated delivery. obhx x c/s pmh denies med ferrous sulfate all nkda psh c/s soch den and soft, non tender citlaly at the incision. citlaly removed from the incision. no erythematous, no discahrge ext +2 edema,no calf ten h/h stable unchanged since discharge Review of Systems - Cardiovascular Cardiovascular: As Per HPI Past Patient History - Past Social History Smoking Status: Never Smoked - PSYCHIATRIC Hx Substance Use: No - SURGICAL HISTORY Hx Surgeries: Yes Hx Section: Yes - ANESTHESIA Hx Anesthesia: Yes Hx Anesthesia Reactions: No Meds Allergies/Adverse Reactions: Allergies Allergy/AdvReac Type Severity Reaction Status Date / Time No Known Allergies Allergy Verified 03/07/17 11:23 - Medications Medications: Current Medications Furosemide (Lasix) 60 mg IVP Q12 [facility] Heparin Sodium (Porcine) (Heparin) 5,000 units SC Q8 [facility] Metoprolol Tartrate (Lopressor) 25 mg PO Q12H [facility] Last Admin: 03/15/17 18:56 Dose: 25 mg Pantoprazole Sodium (Protonix Ec Tab) 40 mg PO DAILY [facility] Physical Exam - GI/Abdominal Exam GI & Abdominal Exam: Soft - Extremities Exam Extremities exam: Positive for: normal inspection, pedal edema (2=) Results - Vital Signs Recent Vital Signs: Last Vital Signs Temp 98.5 F 03/15/17 17:27 Pulse 69 03/15/17 17:27 Resp 18 03/15/17 17:27 BP 131/80 03/15/17 18:56 Pulse Ox 98 03/15/17 17:27 - Labs Result Diagrams: 03/15/17 09:46 03/15/17 09:46 Assessment & Plan - Assessment and Plan (Free Text) Assessment: 36 yr s/p c/s 03/07 with SOB/Cardiomegaly Plan: Plan no ob issues at this time. Citlaly removed. cont medical management for SOB Thank you for consult - Date & Time Date: 03/15/17 Time: 20:00
--- NOTE | 2017-03-16 00:40 | CARD ---
APPROVED REPORT EKG Measurement Heart [id number] <Conclusion> Normal sinus rhythm Normal ECG
[2017-03-16 02:37] LABS: BASO % 0.3 % (0.0-2.0); EOS # 0.1 K/uL (0.0-0.7); HEMATOCRIT 27.6 % (34.0-47.0); LYMPH # 1.7 K/uL (1.0-4.3); LYMPH % 22.4 % (20.0-40.0); MEAN CELL VOLUME 84.8 fL (81.0-99.0); MEAN CORPUSCULAR HEMOGLOBIN 27.5 pg (27.0-31.0); MEAN CORPUSCULAR HGB CONC 32.4 g/dL (33.0-37.0); MEAN PLATELET VOLUME 8.1 fL (7.2-11.7); MONO # 0.5 K/uL (0.0-0.8); MONO % 7.1 % (0.0-10.0); NRBC % 0.4 % (0.0-2.0); RED CELL DISTRIBUTION WIDTH 15.7 % (11.5-14.5); WHITE BLOOD COUNT 7.6 K/uL (4.8-10.8)
[2017-03-16 02:45] LABS: CHLORIDE 103 mmol/L (98-107); POTASSIUM 3.7 mmol/L (3.6-5.2); SODIUM 140 mmol/L (132-148)
[2017-03-16 02:47] LABS: ALB/GLOB RATIO 1.1 (1.0-2.1); ALKALINE PHOSPHATASE 104 U/L (38-126); AST/SGOT 25 U/L (14-36); BILIRUBIN,TOTAL 0.5 mg/dL (0.2-1.3); BLOOD UREA NITROGEN 8 mg/dL (7-17); CARBON DIOXIDE 25 mmol/L (22-30); CHOLESTEROL 275 mg/dL (0-199); GFR AFRICAN-AMERICAN > 60; TOTAL PROTEIN 6.5 g/dL (6.3-8.3)
[2017-03-16 02:48] LABS: ALT/SGPT 25 U/L (9-52); CALCIUM 8.1 mg/dl (8.6-10.4); GLUCOSE,RANDOM 84 mg/dL (65-105)
[2017-03-16 03:09] LABS: T4 10.6 ug/dL (5.5-11.0)
[2017-03-16 03:22] LABS: THYROID STIMULATING HORMONE 2.01 mIU/L (0.46-4.68)
[2017-03-16] MEDS ORDERED: Pantoprazole 40 mg EC Tab PO SCH (10:00)
--- NOTE | 2017-03-16 14:19 | CP.PCM.PN ---
<Natali Pierre - Last Filed: 03/16/17 14:07> Subjective - Date & Time of Evaluation Date of Evaluation: 03/16/17 Time of Evaluation: 07:20 - Subjective Subjective: Patient seen and examined at bedside today. She states that her SOB has resolved and that she fells better today. She reports that her swelling has decreased and she is able to ambulate on her own. She has no other complaints today. Tolerating diet. Objective - Vital Signs/Intake and Output Vital Signs (last 24 hours): Temp Pulse Resp BP Pulse Ox 98.8 F 69 20 148/87 98 03/16/17 07:59 03/16/17 07:59 03/16/17 07:59 03/16/17 09:10 03/16/17 07:59 Intake and Output: 03/16/17 03/16/17 06:59 18:59 Intake Total 240 Balance 240 - Medications Medications: Current Medications Furosemide (Lasix) 60 mg IVP Q12 [facility] Last Admin: 03/16/17 09:10 Dose: 60 mg Heparin Sodium (Porcine) (Heparin) 5,000 units SC Q8 [facility] Last Admin: 03/16/17 14:00 Dose: 5,000 units Metoprolol Tartrate (Lopressor) 25 mg PO Q12H [facility] Last Admin: 03/16/17 04:27 Dose: 25 mg Pantoprazole Sodium (Protonix Ec Tab) 40 mg PO DAILY [facility] Last Admin: 03/16/17 09:10 Dose: 40 mg Pneumococcal Polyvalent Vaccine (Pneumovax 23 Vaccine) 0.5 ml IM .ONCE ONE Stop: 03/17/17 10:01 - Labs Labs: 03/16/17 02:31 03/16/17 02:31 - Constitutional Appears: Non-toxic, No Acute Distress - Head Exam Head Exam: ATRAUMATIC, NORMAL INSPECTION - Eye Exam Eye Exam: EOMI, Normal appearance, PERRL Pupil Exam: NORMAL ACCOMODATION - ENT Exam ENT Exam: Mucous Membranes Moist - Respiratory Exam Respiratory Exam: Clear to Ausculation Bilateral, NORMAL BREATHING PATTERN. absent: Accessory Muscle Use, Rales, Rhonchi, Wheezes, Respiratory Distress - Cardiovascular Exam Cardiovascular Exam: REGULAR RHYTHM, +S1, +S2 - GI/Abdominal Exam GI & Abdominal Exam: Soft, Normal Bowel Sounds. absent: Distended, Firm, Guarding, Tenderness - Extremities Exam Extremities Exam: Pedal Edema. absent: Calf Tenderness Additional comments: 2+ b/l lower ext - Back Exam Back Exam: NORMAL INSPECTION. absent: CVA tenderness (L), CVA tenderness (R), paraspinal tenderness - Neurological Exam Neurological Exam: Alert, Awake, CN II-XII Intact, Oriented x3 Neuro motor strength exam: Left Upper Extremity: 5, Right Upper Extremity: 5, Left Lower Extremity: 5, Right Lower Extremity: 5 - Psychiatric Exam Psychiatric exam: Normal Affect, Normal Mood - Skin Skin Exam: Dry, Intact, Normal Color, Warm Assessment and Plan - Assessment and Plan (Free Text) Assessment: Swelling Secondary to cardiomyopathy vs other etiologies, improving Cardio Dr. Villa consulted, help appreciated. CT with contrast showed cardiomegaly, 4 pulmonary nodules x4, ground glass opacities in lower lobes per report. BNP 642 Lasix 60mg IV q12H. Will switch to HCTZ discharge due to safety. Will hold ACEI or ARB for now due to . DOUGIE x 3 negative F/U EKG AM. F/U ECHO TSH and FT4 wnl HbA1c - 5.4 Hyperlipidemia No statin use during Trig - 126, Tchol - 275, LDL 194, HDL - 54 HTN New onset. Lopressor 25mg PO Q12 hours Anemia Continue monitoring. S/P C/Section on 03/07. OB Dr. Clay consulted, help appreciated -> no further intervention needed Prophylactic measure HepSQ, SCD contraindiated. F/U venous doppler. <Remberto Orozco - Last Filed: 04/20/17 12:37> Objective - Vital Signs/Intake and Output Vital Signs (last 24 hours): Temp Pulse Resp BP Pulse Ox 98.9 F 72 20 129/86 96 03/17/17 08:10 03/17/17 08:42 03/17/17 08:10 03/17/17 09:23 03/22/17 04:39 - Labs Labs: 03/17/17 07:08 03/17/17 07:08 Attending/Attestation - Attestation I have personally seen and examined this patient.: Yes I have fully participated in the care of the patient.: Yes I have reviewed all pertinent clinical information, including history, physical exam and plan: Yes Notes (Text): Patient Seen and examined with the resident. Agree with the resident's evaluation, assessment and plan. Swelling AND shortness of breath Secondary to cardiomyopathy HTN new onset Anemia S/P C/Section on 03/07. OB Dr. Clay consulted, help appreciated.
--- NOTE | 2017-03-16 15:14 | VASCLAB ---
PROCEDURE: Lower Extremity Venous Duplex Exam. HISTORY: swelling PRIORS: None. TECHNIQUE: Bilateral common femoral, femoral, popliteal and posterior tibial, peroneal and great saphenous veins were evaluated. Flow was assessed with color Doppler, compressibility, assessment of phasic flow and augmentation response. Report prepared by Linden Ellington, ARIEL, RVT FINDINGS: RIGHT: 1. Common Femoral Vein: 1.1. Compressibility - Fully compressible: Thrombus - None : Flow - Phasic: Augmentation -Normal: Reflux - None. 2. Femoral Vein: 2.1. Compressibility - Fully compressible: Thrombus - None : Flow - Phasic: Augmentation -Normal: Reflux - None. 3. Popliteal Vein: 3.1. Compressibility - Fully compressible: Thrombus - None : Flow - Phasic: Augmentation -Normal: Reflux - None. 4. Posterior Tibial Vein: 4.1. Compressibility - Fully compressible: Thrombus - None: Flow - Phasic: Augmentation -Normal: Reflux - None. 5. Peroneal Vein: 5.1. Compressibility - Fully compressible: Thrombus - None: Flow - Phasic: Augmentation -Normal: Reflux - None. 6. Great Saphenous Vein: 6.1. Compressibility - Fully compressible: Thrombus - None: Flow - Phasic: Augmentation - Normal: Reflux - Severe. LEFT: 1. Common Femoral Vein: 1.1. Compressibility - Fully compressible: Thrombus - None: Flow - Phasic: Augmentation -Normal: Reflux - None. 2. Femoral Vein: 2.1. Compressibility - Fully compressible: Thrombus - None: Flow - Phasic: Augmentation -Normal: Reflux - None. 3. Popliteal Vein: 3.1. Compressibility - Fully compressible: Thrombus - None : Flow - Phasic: Augmentation -Normal: Reflux - None. 4. Posterior Tibial Vein: 4.1. Compressibility - Fully compressible: Thrombus - None: Flow - Phasic: Augmentation -Normal: Reflux - None. 5. Peroneal Vein: 5.1. Compressibility - Fully compressible: Thrombus - None: Flow - Phasic: Augmentation -Normal: Reflux - None. 6. Great Saphenous Vein: 6.1. Compressibility - Fully compressible: Thrombus - None: Flow - Phasic: Augmentation - Normal: Reflux - None. OTHER FINDINGS: Right: Severe valvular incompetence of the right greater saphenous vein. Left: None significant. IMPRESSION: Right: No evidence of deep or superficial vein thrombosis of the right lower extremity. Left: No evidence of deep or superficial vein thrombosis of the left lower extremity. Normal valve function noted of the left side.
--- NOTE | 2017-03-16 19:30 | CON ---
DATE: 03/16/2017 LOCATION: Room 668 B. HISTORY OF PRESENT ILLNESS: Requested to see this 36-year-old black female originally from [facility], admitted with shortness of breath a few days after section. This very nice young lady told me that she had a totally uneventful , although she had no care and had a section because the baby "being so big" and she could not push. She underwent a section here in this institution without any immediate complications whatsoever. She went home and she began eating "very heavy food" Etta food to build her strength and little by little began having some swelling of lower extremities, shortness of breath, etc. Came to the Emergency Room yesterday, she was immediately evaluated. She was given intravenous furosemide with excellent diuresis and this morning she feels much better, she is able to walk and she has no shortness of breath. PAST MEDICAL HISTORY: Unremarkable. She denies any hypertension or diabetes. There is no family history of hypertension. The only history is her mother of cancer of the cervix, but no high blood pressure or heart disease runs in the family. SOCIAL HISTORY: She is a nonsmoker, nondrinker. At this point in time, she feels "significantly better." She is able to walk. REVIEW OF SYSTEMS: Otherwise, negative. PHYSICAL EXAMINATION: GENERAL: Reveals a moderately obese adult black female, very pleasant, intelligent, speaking quite well, in no distress whatsoever. VITAL SIGNS: Yesterday on arrival here blood pressure was about 140/90. Her latest blood pressure is totally normal. She is breathing quite well in room air. Heart rate is unremarkable and telemetry is unremarkable. SKIN: Warm and dry. There is some edema, trace edema in the lower extremity and in both feet. HEENT: Basically unremarkable. NECK: Supple. Jugular vein not distended at 30 degrees inclination. LUNGS: Yeh during my examination were totally clear, no rhonchi or crepitation. CARDIAC: Precordium is unremarkable. No thrill. Neck veins not distended. Auscultation reveals heart sounds normal in intensity with slight systolic murmur along the sternal border. ABDOMEN: Obese. There is tenderness towards the pelvic area due to recent C- section. CENTRAL NERVOUS SYSTEM: Unremarkable. LABORATORY DATA: On admission shows significant anemia with hemoglobin of 8.5, hypochromic and microcytic due to iron deficiency. Electrolytes were normal. Potassium was normal, significantly there is some hypoalbuminemia at 3.0. ProBNP mildly elevated at 642, which is normally seen in , right after termination of , , gestational. Thyroid was normal. Chest x-ray reviewed showing some pulmonary congestion. This x-ray was a portable view. With portable technique the cardiac size is worthless to mention. It appears prominent but once again, is worthless due to the technique in my personal opinion and in addition, during the cardiac size increases. The cardiac chambers increase in size. So this will be a good idea to repeat a chest x-ray with plumber's assistant, PA and lateral views to clearly evaluate the cardiac size. Resting electrocardiogram showing normal on 2 occasions. Due to the shortness of breath during early , a CT of pulmonary windows was done but was negative for any pulmonary emboli. An echocardiogram was done; in my opinion, is consistent with gestational age, it is mildly increased left and right atrial dimension both the right as well as left ventricular function unremarkable, totally normal. The left ventricle may be in borderline dilated, which is normal for gestational period. This is also seen a trace mitral regurgitation and mild to moderate tricuspid regurgitation, pulmonary pressure mildly increased, which is also called normally seen at this gestational level right after delivery, post C. section. IMPRESSION: Pulmonary congestion appears at this point in time, multifactorial , perhaps a combination of significant anemia with infusion of IV fluids during and right after the as is normally done, in combination the poor diet , salty diet over the last few days, leading to oncotic edema and pulmonary congestion. Cardiologically rivero, at this point in time, the situation appears rather benign. No evidence of any systolic or diastolic heart failure. SUGGESTIONS: Continue diuretic therapy, diet, and this should resolve the edema and in all honesty, to be sent to the medical clinic or cardiology clinic at least to follow up, to rule out down the road, other entities. But once again, at this point in time, I do not see any evidence of any peripartum cardiomyopathy. Armando Villa MD cc: 68 TT: 03/16/2017 19:30:06 Confirmation # [id number] Dictation # [id number] DORA
[2017-03-17 00:03] VITALS: RESP 20
[2017-03-17 07:16] LABS: BASO % 0.4 % (0.0-2.0); EOS # 0.1 K/uL (0.0-0.7); EOS % 1.6 % (0.0-4.0); HEMATOCRIT 31.2 % (34.0-47.0); LYMPH # 1.9 K/uL (1.0-4.3); LYMPH % 28.1 % (20.0-40.0); MEAN CELL VOLUME 85.1 fL (81.0-99.0); MEAN CORPUSCULAR HEMOGLOBIN 27.8 pg (27.0-31.0); MEAN CORPUSCULAR HGB CONC 32.7 g/dL (33.0-37.0); MEAN PLATELET VOLUME 8.2 fL (7.2-11.7); MONO # 0.5 K/uL (0.0-0.8); MONO % 7.9 % (0.0-10.0); NRBC % 0.2 % (0.0-2.0); WHITE BLOOD COUNT 6.8 K/uL (4.8-10.8)
[2017-03-17 07:46] LABS: CHLORIDE 99 mmol/L (98-107); POTASSIUM 3.7 mmol/L (3.6-5.2); SODIUM 137 mmol/L (132-148)
[2017-03-17 07:48] LABS: ALB/GLOB RATIO 1.1 (1.0-2.1); ALKALINE PHOSPHATASE 91 U/L (38-126); ALT/SGPT 19 U/L (9-52); AST/SGOT 26 U/L (14-36); BILIRUBIN,TOTAL 0.6 mg/dL (0.2-1.3); BLOOD UREA NITROGEN 13 mg/dL (7-17); CARBON DIOXIDE 26 mmol/L (22-30); GFR AFRICAN-AMERICAN > 60
[2017-03-17 07:49] LABS: CALCIUM 8.1 mg/dl (8.6-10.4); GLUCOSE,RANDOM 86 mg/dL (65-105); PHOSPHOROUS 5.6 mg/dL (2.5-4.5)
[2017-03-17 08:48] VITALS: PULSE 72
[2017-03-17 08:50] VITALS: BP 129/86; TEMP 98.9
[2017-03-17] MEDS ORDERED: Pneumococcal 23-Valent Vaccine IM ONE (10:00)
--- NOTE | 2017-03-17 12:18 | PCM.HF ---
Heart Failure Core Measure - Heart Failure Ejection Fraction: 40 % or Greater Left Ventricular Function to be assessed after discharge: Yes DEEPA Inhibitor Prescribed: No Contraindication/Reason for not providing: patient is breast feeding Beta-Babak Prescribed: Metoprolol Succinate Angiotensin II Receptor Babak Prescribed: No Contraindication/Reason for not providing: patient is breast feeding AnticoagulationTherapy for Atrial Fibrillation/Atrialflutter: No Contraindication/Reason for not providing: not applicable Aldosterone Antagonist Prescribed: No Contraindication/Reason for not providing: not applicable Hydralazine Nitrate Prescribed: No Contraindication/Reason for not providing: not applicable Implantable Cardioverter Defibrillator Therapy: No Contraindication/Reason for not providing: not applicable Cardiac Resynchronization Therapy Prescribed: No Contraindication/Reason for not providing: not applicable - Follow up Will be discharged to: Home Follow Up Date (must be within 7 days from discharge): 03/24/17 Follow Up Time: 09:00
--- NOTE | 2017-03-17 13:09 | CP.PCM.DIS ---
<Alex Stern - Last Filed: 03/17/17 13:54> Provider - Provider Date of Admission: 03/15/17 15:38 Attending physician: Anthony Hancock DO Consults: Cardiology- Armando Clay Time Spent in preparation of Discharge (in minutes): 45 Hospital Course - Lab Results Lab Results: Most Recent Lab Values WBC 6.8 K/uL (4.8-10.8) 03/17/17 07:08 RBC 3.67 Mil/uL (3.80-5.20) L 03/17/17 07:08 Hgb 10.2 g/dL (11.0-16.0) L 03/17/17 07:08 Hct 31.2 % (34.0-47.0) L 03/17/17 07:08 MCV 85.1 fL (81.0-99.0) 03/17/17 07:08 MCH 27.8 pg (27.0-31.0) 03/17/17 07:08 MCHC 32.7 g/dL (33.0-37.0) L 03/17/17 07:08 RDW 16.0 % (11.5-14.5) H 03/17/17 07:08 Plt Count 430 K/uL (130-400) H 03/17/17 07:08 MPV 8.2 fL (7.2-11.7) 03/17/17 07:08 Neut % (Auto) 62.0 % (50.0-75.0) 03/17/17 07:08 Lymph % (Auto) 28.1 % (20.0-40.0) 03/17/17 07:08 [place] % (Auto) 7.9 % (0.0-10.0) 03/17/17 07:08 Eos % (Auto) 1.6 % (0.0-4.0) 03/17/17 07:08 Baso % (Auto) 0.4 % (0.0-2.0) 03/17/17 07:08 Neut # 4.2 K/uL (1.8-7.0) 03/17/17 07:08 Lymph # 1.9 K/uL (1.0-4.3) 03/17/17 07:08 [place] # 0.5 K/uL (0.0-0.8) 03/17/17 07:08 Eos # 0.1 K/uL (0.0-0.7) 03/17/17 07:08 Baso # 0.0 K/uL (0.0-0.2) 03/17/17 07:08 Sodium 137 mmol/L (132-148) 03/17/17 07:08 Potassium 3.7 mmol/L (3.6-5.2) 03/17/17 07:08 Chloride 99 mmol/L (98-107) 03/17/17 07:08 Carbon Dioxide 26 mmol/L (22-30) 03/17/17 07:08 Anion Gap 16 (10-20) 03/17/17 07:08 BUN 13 mg/dL (7-17) 03/17/17 07:08 Creatinine 0.7 MG/DL (0.7-1.2) 03/17/17 07:08 Est GFR ( Amer) > 60 03/17/17 07:08 Est GFR (Non-Af Amer) > 60 03/17/17 07:08 POC Glucose (mg/dL) 83 mg/dL (65-110) 03/16/17 06:33 Random Glucose 86 mg/dL (65-105) 03/17/17 07:08 Hemoglobin A1c 5.4 % (4.2-6.5) 03/16/17 02:31 Calcium 8.1 mg/dl (8.6-10.4) L 03/17/17 07:08 Phosphorus 5.6 mg/dL (2.5-4.5) H 03/17/17 07:08 Magnesium 2.0 mg/dL (1.6-2.3) 03/17/17 07:08 Total Bilirubin 0.6 mg/dL (0.2-1.3) 03/17/17 07:08 AST 26 U/L (14-36) 03/17/17 07:08 ALT 19 U/L (9-52) 03/17/17 07:08 Alkaline Phosphatase 91 U/L (38-126) 03/17/17 07:08 Total Creatine Kinase 87 U/L (30-135) 03/16/17 02:31 CK-MB (Mass) 0.66 ng/mL (0.0-3.38) 03/16/17 02:31 Troponin I 0.0140 ng/mL (0.00-0.120) 03/15/17 09:46 Troponin I, Quant < 0.0120 ng/mL (0.00-0.120) 03/16/17 02:31 NT-Pro-B Natriuret Pep 642 pg/mL (0-450) H 03/15/17 09:46 Total Protein 7.0 g/dL (6.3-8.3) 03/17/17 07:08 Albumin 3.7 g/dL (3.5-5.0) 03/17/17 07:08 Globulin 3.3 gm/dL (2.2-3.9) 03/17/17 07:08 Albumin/Globulin Ratio 1.1 (1.0-2.1) 03/17/17 07:08 Triglycerides 126 mg/dL (0-149) 03/16/17 02:31 Cholesterol 275 mg/dL (0-199) H 03/16/17 02:31 LDL Cholesterol Direct 194 mg/dL (0-129) H 03/16/17 02:31 HDL Cholesterol 54 mg/dL (30-70) 03/16/17 02:31 Thyroxine (T4) 10.6 ug/dL (5.5-11.0) 03/16/17 02:31 TSH 3rd Generation 2.01 mIU/L (0.46-4.68) 03/16/17 02:31 Urine Color Colorless (YELLOW) 03/15/17 11:20 Urine Clarity Clear (Clear) 03/15/17 11:20 Urine pH 7.0 (5.0-8.0) 03/15/17 11:20 Ur Specific [place] 1.004 (1.003-1.030) 03/15/17 11:20 Urine Protein Negative mg/dL (NEGATIVE) 03/15/17 11:20 Urine Glucose (UA) Normal mg/dL (Normal) 03/15/17 11:20 Urine Ketones Negative mg/dL (NEGATIVE) 03/15/17 11:20 Urine Blood Negative (NEGATIVE) 03/15/17 11:20 Urine Nitrate Negative (NEGATIVE) 03/15/17 11:20 Urine Bilirubin Negative (NEGATIVE) 03/15/17 11:20 Urine Urobilinogen Normal mg/dL (0.2-1.0) 03/15/17 11:20 Ur Leukocyte Esterase Neg Dany/uL (Negative) 03/15/17 11:20 Ur Squamous Epith Cells < 1 /hpf (0-5) 03/15/17 11:20 - Hospital Course Hospital Course: Admit date- 03/15/17 DC date- 03/17/17 Stable for discharge Procedures- none No complications Attending: Dr. Campos Consults 1. Dr. Clay/Skyla 2. Dr. Armando Villa HPI: see h/p Labs: see lab data section Discharge diagnoses 1. Edema 2. HTN 3. Anemia Hospital course CC: Shortness of breath HPI: 36F and no other PMHx presented with SOB. Patient is s/p c/section on 03/07/17 with no complications before and after delivery. Patient started feeling SOB 3 days ago with associated orthopnea. Pt started to have difficulty breathing with movement. Pt also reports subjective fever yesterday and bilateral feet and face swelling started on day of evaluation. Pt said no complications with her first . Denied chest pain, additional fever episode, chills, abdominal pain, constipation, diarrhea. Swelling Secondary to cardiomyopathy vs other etiologies, improving>> Dr. Villa ruled out cardiomyopathy Cardio Dr. Villa consulted, help appreciated. CT with contrast showed cardiomegaly, 4 pulmonary nodules x4, ground glass opacities in lower lobes per report. BNP 642 Lasix 60mg IV q12H. Will switch to HCTZ discharge due to safety. Will hold ACEI or ARB for now due to . DOUGIE x 3 negative ECHO pending TSH and FT4 wnl HbA1c - 5.4 Hyperlipidemia No statin use during Trig - 126, Tchol - 275, LDL 194, HDL - 54 HTN New onset. Lopressor 25mg PO Q12 hours Anemia Continue monitoring. S/P C/Section on 03/07. OB Dr. Clay consulted, help appreciated -> no further intervention needed Prophylactic measure HepSQ, SCD contraindiated. F/U venous doppler>>> negative Discharge instructions Patient is medically stable for discharge. Patient recommended to follow-up [facility] ([phone]) to establish care within one week of discharge. Patient to discharge on following medications: 1) Lopressor 25mg PO Q50Ewjv and 2) HCTZ. Discharge meds 1. HCTZ 12.5 mg PO daily 2. Lopressor 25 mg PO q 12 hrs - Date & Time of H&P Date of H&P: 03/15/17 Time of H&P: 16:22 Discharge Exam - Head Exam Head Exam: ATRAUMATIC, NORMAL INSPECTION Discharge Plan - Discharge Medications Prescriptions: hydroCHLOROthiazide [Microzide] 12.5 mg PO DAILY #30 cap Metoprolol Tartrate [Lopressor] 25 mg PO Q12H #30 tab - Follow Up Plan Condition: STABLE Disposition: HOME/ ROUTINE Instructions: Heart Failure (DC), Section (DC), Heart Healthy Diet (DC ), Low Sodium Diet (DC) Additional Instructions: Activity as tolerated. Patient recommended to follow-up [facility] ([phone]) to establish care within one week of discharge. Patient to discharge on following medications: 1) Lopressor 25mg PO [id number] and 2) HCTZ. Referrals: [facility] at [facility] [Outside] Wayne Clay MD [Staff Provider] - 1 Week <Giana Campos V - Last Filed: 03/17/17 22:40> Provider - Provider Date of Admission: 03/15/17 15:38 Attending physician: Anthony Hancock DO Hospital Course - Lab Results Lab Results: Most Recent Lab Values WBC 6.8 K/uL (4.8-10.8) 03/17/17 07:08 RBC 3.67 Mil/uL (3.80-5.20) L 03/17/17 07:08 Hgb 10.2 g/dL (11.0-16.0) L 03/17/17 07:08 Hct 31.2 % (34.0-47.0) L 03/17/17 07:08 MCV 85.1 fL (81.0-99.0) 03/17/17 07:08 MCH 27.8 pg (27.0-31.0) 03/17/17 07:08 MCHC 32.7 g/dL (33.0-37.0) L 03/17/17 07:08 RDW 16.0 % (11.5-14.5) H 03/17/17 07:08 Plt Count 430 K/uL (130-400) H 03/17/17 07:08 MPV 8.2 fL (7.2-11.7) 03/17/17 07:08 Neut % (Auto) 62.0 % (50.0-75.0) 03/17/17 07:08 Lymph % (Auto) 28.1 % (20.0-40.0) 03/17/17 07:08 [place] % (Auto) 7.9 % (0.0-10.0) 03/17/17 07:08 Eos % (Auto) 1.6 % (0.0-4.0) 03/17/17 07:08 Baso % (Auto) 0.4 % (0.0-2.0) 03/17/17 07:08 Neut # 4.2 K/uL (1.8-7.0) 03/17/17 07:08 Lymph # 1.9 K/uL (1.0-4.3) 03/17/17 07:08 [place] # 0.5 K/uL (0.0-0.8) 03/17/17 07:08 Eos # 0.1 K/uL (0.0-0.7) 03/17/17 07:08 Baso # 0.0 K/uL (0.0-0.2) 03/17/17 07:08 Sodium 137 mmol/L (132-148) 03/17/17 07:08 Potassium 3.7 mmol/L (3.6-5.2) 03/17/17 07:08 Chloride 99 mmol/L (98-107) 03/17/17 07:08 Carbon Dioxide 26 mmol/L (22-30) 03/17/17 07:08 Anion Gap 16 (10-20) 03/17/17 07:08 BUN 13 mg/dL (7-17) 03/17/17 07:08 Creatinine 0.7 MG/DL (0.7-1.2) 03/17/17 07:08 Est GFR ( Amer) > 60 03/17/17 07:08 Est GFR (Non-Af Amer) > 60 03/17/17 07:08 POC Glucose (mg/dL) 83 mg/dL (65-110) 03/16/17 06:33 Random Glucose 86 mg/dL (65-105) 03/17/17 07:08 Hemoglobin A1c 5.4 % (4.2-6.5) 03/16/17 02:31 Calcium 8.1 mg/dl (8.6-10.4) L 03/17/17 07:08 Phosphorus 5.6 mg/dL (2.5-4.5) H 03/17/17 07:08 Magnesium 2.0 mg/dL (1.6-2.3) 03/17/17 07:08 Total Bilirubin 0.6 mg/dL (0.2-1.3) 03/17/17 07:08 AST 26 U/L (14-36) 03/17/17 07:08 ALT 19 U/L (9-52) 03/17/17 07:08 Alkaline Phosphatase 91 U/L (38-126) 03/17/17 07:08 Total Creatine Kinase 87 U/L (30-135) 03/16/17 02:31 CK-MB (Mass) 0.66 ng/mL (0.0-3.38) 03/16/17 02:31 Troponin I 0.0140 ng/mL (0.00-0.120) 03/15/17 09:46 Troponin I, Quant < 0.0120 ng/mL (0.00-0.120) 03/16/17 02:31 NT-Pro-B Natriuret Pep 642 pg/mL (0-450) H 03/15/17 09:46 Total Protein 7.0 g/dL (6.3-8.3) 03/17/17 07:08 Albumin 3.7 g/dL (3.5-5.0) 03/17/17 07:08 Globulin 3.3 gm/dL (2.2-3.9) 03/17/17 07:08 Albumin/Globulin Ratio 1.1 (1.0-2.1) 03/17/17 07:08 Triglycerides 126 mg/dL (0-149) 03/16/17 02:31 Cholesterol 275 mg/dL (0-199) H 03/16/17 02:31 LDL Cholesterol Direct 194 mg/dL (0-129) H 03/16/17 02:31 HDL Cholesterol 54 mg/dL (30-70) 03/16/17 02:31 Thyroxine (T4) 10.6 ug/dL (5.5-11.0) 03/16/17 02:31 TSH 3rd Generation 2.01 mIU/L (0.46-4.68) 03/16/17 02:31 Urine Color Colorless (YELLOW) 03/15/17 11:20 Urine Clarity Clear (Clear) 03/15/17 11:20 Urine pH 7.0 (5.0-8.0) 03/15/17 11:20 Ur Specific [place] 1.004 (1.003-1.030) 03/15/17 11:20 Urine Protein Negative mg/dL (NEGATIVE) 03/15/17 11:20 Urine Glucose (UA) Normal mg/dL (Normal) 03/15/17 11:20 Urine Ketones Negative mg/dL (NEGATIVE) 03/15/17 11:20 Urine Blood Negative (NEGATIVE) 03/15/17 11:20 Urine Nitrate Negative (NEGATIVE) 03/15/17 11:20 Urine Bilirubin Negative (NEGATIVE) 03/15/17 11:20 Urine Urobilinogen Normal mg/dL (0.2-1.0) 03/15/17 11:20 Ur Leukocyte Esterase Neg Dany/uL (Negative) 03/15/17 11:20 Ur Squamous Epith Cells < 1 /hpf (0-5) 03/15/17 11:20 Attending/Attestation - Attestation I have personally seen and examined this patient.: Yes I have fully participated in the care of the patient.: Yes I have reviewed all pertinent clinical information, including history, physical exam and plan: Yes Notes (Text): Patient seen, examined and case discussed with day-time resident. Patient seen this morning, denies acute complaints, and reports swelling has improved. Patient recently came from [facility] one year ago, and has not established care with primary care doctor. Patient is currently breast feeding except while in hospital-->Held Enrique/Arb and statin given patient is actively breast feeding. Per OB note, no active issues and citlaly removed. Per cardiology note, no evidence of systolic or diastolic heart failure, no evidence of any peripartum cardiomyopathy, and cardiology reviewed echocardiogram which is essentially normal given patient's is recent , please refer to cardio note for specific details. Dopplers of lower extremities: negative for DVT b/l; on exam, patient has trace , non-pitting edema b/l Discussed with patient at bedside, she should establish care with primary care doctor and patient given [facility] ([phone]) which I personally placed on her cell phone and saved it to establish follow-up appointment from hospitalization and instructed patient to weigh herself to see if she is gain water weight or not. Patient placed on Lopressor 25mg PO bid and HCTZ 12.5mg PO one daily. Per [facility]: Lopressor would not expected to cause any adverse effects in breastfed infants, no adverse reactions noted and HCTZ dose <50mg or less is acceptable during ; given one month supply advised, to follow-up in the clinic upon discharge. Spoke with patient and patient's with her consent regarding discharge plan in addition to providing number to the [facility] for follow-up. Vitals stable upon discharge from hospital.
--- NOTE | 2017-03-17 20:06 | CARD ---
APPROVED REPORT EKG Measurement Heart [id number] <Conclusion> Normal sinus rhythm Normal ECG
--- NOTE | 2017-03-18 09:47 | CARD ---
APPROVED REPORT EXAM: Two-dimensional and M-mode echocardiogram with Doppler and color Doppler. Other Information Quality : GoodRhythm : NSR INDICATION Dyspnea CARDIOMYOPATHY M-Mode DIMENSIONS RVDd2.39 (2.1-3.2cm)Left Atrium (MM)4.20 (2.5-4.0cm) IVSd0.97 (0.7-1.1cm)Aortic Root2.74 (2.2-3.7cm) LVDd5.62 (4.0-5.6cm)Aortic Cusp Exc.1.91 (1.5-2.0cm) PWd0.83 (0.7-1.1cm)FS (%) 36 % LVDs3.61 (2.0-3.8cm)LVEF (%)65 (>50%) Mitral Valve MV E Svcdqhyy290.1cm/sMV A Mywmtrkh55.8cm/sE/A ratio2.1 TDI E/Lateral E'0.0E/Medial E'0.0 Tricuspid Valve TR Peak [id number]/sTR Peak Gr.[id number] LEFT VENTRICLE The left ventricle is normal size. There is normal left ventricular wall thickness. The left ventricular function is normal. The left ventricular ejection fraction is 65-70% There is normal LV segmental wall motion. The left ventricular diastolic function is normal. No left ventricle thrombus noted on this study. There is no ventricular septal defect visualized. There is no left ventricular aneurysm. There is no mass noted in the left ventricle. RIGHT VENTRICLE The right ventricle is normal size. There is normal right ventricular wall thickness. The right ventricular systolic function is normal. ATRIA The left atrium size is normal. The right atrium size is normal. The interatrial septum is intact with no evidence for an atrial septal defect. AORTIC VALVE The aortic valve is normal in structure and function. No aortic regurgitation is present. There is no aortic valvular stenosis. There is no aortic valvular vegetation. MITRAL VALVE The mitral valve is normal in structure There is no evidence of mitral valve prolapse. There is no mitral valve stenosis. Mitral regurgitation is mild. TRICUSPID VALVE The tricuspid valve is normal in structure There is MILD TO MODERATE tricuspid regurgitation. PAP = 40-45 RAP = 10 There is no tricuspid valve prolapse or vegetation. There is no tricuspid valve stenosis. PULMONIC VALVE The pulmonary valve is normal in structure There is mild pulmonic valvular regurgitation. There is no pulmonic valvular stenosis. GREAT VESSELS The aortic root is normal in size. The ascending aorta is normal in size. The pulmonary artery is normal. The IVC is normal in size and collapses <50% with inspiration. PERICARDIAL EFFUSION The pericardium appears normal. There is no pleural effusion. <Conclusion> The left ventricular ejection fraction is 65-70% The left ventricular diastolic function is normal. Mitral regurgitation is mild. There is MILD TO MODERATE tricuspid regurgitation. PAP = 40-45 RAP = 10 There is mild pulmonic valvular regurgitation.
[2017-03-22 04:34] VITALS: O2SAT 96
== END 2017-03-17 13:07 | disposition home or self-care (01) | DRG 376 ==
LOC: C.ER 08:45 → C.9OBSV 11:30 → C.9E 15:38 → OBSVTOIN 15:38 → C.9E 16:15 → C.6T 16:41 → C.9E 16:48
PROVIDERS: ADMIT Hospitalist; ATTEND Hospitalist
DX: O16.5 Unspecified maternal hypertension, complicating the puerperium (principal); R04.2 Hemoptysis; O90.81 Anemia of the puerperium; O90.89 Other complications of the puerperium, not elsewhere classified; Z80.8 Family history of malignant neoplasm of other organs or systems; E78.5 Hyperlipidemia, unspecified